=== PATIENT | female | born 1985 ===

== ENCOUNTER 2020-02-03 09:32 | Day surgery (SDC) | payer OTHER ==
[~2020-02-03 09:32] MED LIST: ZYRTEC10 M3 PO
[2020-02-03] MEDS ORDERED: Tylenol #3 PO (17:52)
[2020-02-03] MEDS ORDERED: MORGIDOX100 MG PO (17:52)
== END 2020-02-03 20:50 | disposition home or self-care (01) ==
LOC: CIR.AMB 09:32
PROVIDERS: ATTEND Obstetrics & Gynecology
DX: D25.0 Submucous leiomyoma of uterus (principal); N84.0 Polyp of corpus uteri; Z20.828 Contact with and (suspected) exposure to other viral communicable diseases